=== PATIENT | female | born 1965 | race African-American/Black ===

== ENCOUNTER 2025-04-25 16:12 | Emergency (ER) | payer BC, MEDICAID ==
[~2025-04-25] VITALS: Ht 165.1 cm; Wt 72.0 kg
[2025-04-25] MEDS: OLANZAPINE 10 MG/VIAL IM ONE (17:09)
[2025-04-25] MEDS: DIPHENHYDRAMINE 50MG/ML VIAL IM ONE (17:09)
[2025-04-25] MEDS: MIDAZOLAM HCL 2 MG/2 ML VIAL IM ONE (18:05)
[2025-04-25] MEDS: ZIPRASIDONE MESYLATE 20MG/VIAL IM ONE (18:06)
[2025-04-25 18:56] LABS: BASOPHILS % 0.3 % (0.0-2.0); EOSINOPHILS % 1.5 % (0.0-5.0); HEMATOCRIT. 37.2 % (36.0-48.0); HEMOGLOBIN. 11.5 g/dL (12.0-16.0); LYMPHOCYTES % 21.7 % (20.0-50.0); MEAN CORPUSCULAR HEMOGLOBIN 27.2 pg (28.0-32.0); MEAN CORPUSCULAR VOLUME 87.8 fL (81.0-99.0); MEAN PLATELET VOLUME 9.5 fl (7.4-10.4); MONOCYTES % 5.3 % (2.0-8.0); NEUTROPHILS % 71.2 % (40.0-76.0); PLATELET 200 x1000/uL (130-400); RED BLOOD CELL COUNT 4.23 mill/uL (4.2-5.4); RED CELL DISTRIBUTION WIDTH 14.9 % (11.6-14.6)
[2025-04-25 19:08] LABS: CHLORIDE 112 mEq/L (98-107); POTASSIUM 4.3 mEq/L (3.5-5.1); SODIUM 143 mEq/L (136-145)
[2025-04-25 19:09] LABS: CALCIUM 9.9 mg/dL (8.7-10.4); CARBON DIOXIDE 25 mEq/L (21-32)
[2025-04-25 19:14] LABS: CREATININE 0.9 mg/dL (0.6-1.0); GLUCOSE 87 mg/dL (70-105); UREA NITROGEN BLOOD 15 mg/dL (9-23)
[2025-04-25 19:15] LABS: ETHANOL BLOOD < 10 mg/dL (<10)
[2025-04-25 19:16] LABS: ACETAMINOPHEN < 2 ug/mL (10-30); CREATINE KINASE 383 IU/L (34-145)
[2025-04-26] MEDS: MIDAZOLAM HCL 2 MG/2 ML VIAL IM ONE (01:15)
[2025-04-26] MEDS: HALOPERIDOL LACTATE 5MG/ML VIAL IM ONE (01:27)
[2025-04-26 01:39] VITALS: O2SAT 100
[2025-04-26] MEDS: MIDAZOLAM HCL 2 MG/2 ML VIAL IV ONE (01:39)
[2025-04-26 23:54] LABS: CLARITY URINE CLEAR (CLEAR); COLOR URINE YELLOW (YELLOW); GLUCOSE URINE NEGATIVE (NEGATIVE); KETONES URINE NEGATIVE (NEGATIVE); LEUKOCYTE ESTERASE URINE 3+ (NEGATIVE); NITRITE URINE NEGATIVE (NEGATIVE); OCCULT BLOOD URINE 2+ (NEGATIVE); PH URINE 6.5 (4.5-8.0); PROTEIN URINE NEGATIVE (NEGATIVE); SPECIFIC GRAVITY URINE 1.017 (1.005-1.030); UROBILINOGEN URINE 0.2 E.U./dL (0.2-1.0)
[2025-04-27 00:02] LABS: *AMPHETAMINES SCREEN URINE NEGATIVE (NEGATIVE); *BARBITURATES SCREEN URINE NEGATIVE (NEGATIVE); *BENZODIAZEPINES SCREEN URINE PRESUMPTIVE POSITIVE (NEGATIVE); *COCAINE SCREEN URINE PRESUMPTIVE POSITIVE (NEGATIVE); CANNABINOID URINE SCREEN NEGATIVE (NEGATIVE); ECSTASY MDMA SCREEN URINE NEGATIVE (NEGATIVE); METHADONE URINE SCREEN NEGATIVE (NEGATIVE); OPIATES URINE SCREEN NEGATIVE (NEGATIVE); PHENCYCLIDINE URINE SCREEN NEGATIVE (NEGATIVE)
[2025-04-27 00:11] LABS: SQUAMOUS EPITHELIAL CELL URINE 1+ /lpf (RARE/1+); WBC URINE 25-50 /hpf (0-2)
[2025-04-27 00:12] LABS: BACTERIA URINE TRACE; RBC URINE 25-50 /hpf (0-2)
[2025-04-27] MEDS: CEPHALEXIN 250MG CAPSULE PO SCH (09:54)
[2025-04-27] MEDS ORDERED: HYDROXYZINE 25MG TABLET PO PRN (11:15)
[2025-04-27 12:12] VITALS: BP 116/67; PULSE 61; RESP 18; TEMP 37; O2SAT 99
== END 2025-04-27 12:35 ==
LOC: ER 16:12
DX: F23 Brief psychotic disorder (principal); Z79.899 Other long term (current) drug therapy; Z20.822 Contact with and (suspected) exposure to COVID-19
CPT/HCPCS: 80305; 80048; 81003; 80307; 80329; 80320; 82550; 85025; 36415; 93005; 96372 ×2; 99291; 87426; 87086; 96374; J3490; J1200; J2250 ×2; J3486; J1630; G0480

== ENCOUNTER 2025-06-12 18:54 | Emergency (ER) | payer BC, MEDICAID ==
[~2025-06-12] VITALS: Ht 165.1 cm; Wt 72.0 kg
[2025-06-12] MEDS ORDERED: MIDAZOLAM HCL 5 MG/5 ML VIAL IM NR (19:15)
[2025-06-12] MEDS ORDERED: MIDAZOLAM HCL 5 MG/ML VIAL IM ONE (19:15)
[2025-06-12] MEDS: MIDAZOLAM HCL 2 MG/2 ML VIAL IM NR (19:30)
[2025-06-12] MEDS: HALOPERIDOL LACTATE 5MG/ML VIAL IM ONE (19:30)
[2025-06-12] MEDS: DIPHENHYDRAMINE 50MG/ML VIAL IM ONE (19:30)
[2025-06-12 20:23] LABS: BASOPHILS % 0.4 % (0.0-2.0); EOSINOPHILS % 1.1 % (0.0-5.0); HEMATOCRIT. 38.3 % (36.0-48.0); HEMOGLOBIN. 12.3 g/dL (12.0-16.0); LYMPHOCYTES % 14.9 % (20.0-50.0); MEAN PLATELET VOLUME 8.9 fl (7.4-10.4); MONOCYTES % 4.9 % (2.0-8.0); NEUTROPHILS % 78.7 % (40.0-76.0); PLATELET 293 x1000/uL (130-400); RED BLOOD CELL COUNT 4.57 mill/uL (4.2-5.4); RED CELL DISTRIBUTION WIDTH 14.1 % (11.6-14.6)
[2025-06-12 20:30] VITALS: O2SAT 98
[2025-06-12 20:33] LABS: CLARITY URINE CLOUDY (CLEAR); COLOR URINE DARK YELLOW (YELLOW); GLUCOSE URINE NEGATIVE (NEGATIVE); KETONES URINE 1+ (NEGATIVE); LEUKOCYTE ESTERASE URINE 2+ (NEGATIVE); NITRITE URINE NEGATIVE (NEGATIVE); OCCULT BLOOD URINE NEGATIVE (NEGATIVE); PH URINE 7.0 (4.5-8.0); PROTEIN URINE 1+ (NEGATIVE); SPECIFIC GRAVITY URINE 1.023 (1.005-1.030); UROBILINOGEN URINE 1.0 E.U./dL (0.2-1.0)
[2025-06-12 20:39] LABS: ETHANOL BLOOD < 10 mg/dL (<10); UREA NITROGEN BLOOD 12 mg/dL (9-23)
[2025-06-12 20:40] LABS: ASPARTATE AMINOTRANSFERASE 27 IU/L (<34); WBC URINE 15-25 /hpf (0-2)
[2025-06-12 20:41] LABS: BACTERIA URINE 2+; BILIRUBIN DIRECT 0.1 mg/dL (<=3.0); BILIRUBIN TOTAL 0.5 mg/dL (0.1-1.0); PROTEIN TOTAL 7.7 g/dL (6.0-8.3); RBC URINE 0-2 /hpf (0-2); SQUAMOUS EPITHELIAL CELL URINE 1+ /lpf (RARE/1+)
[2025-06-12 20:45] LABS: *AMPHETAMINES SCREEN URINE PRESUMPTIVE POSITIVE (NEGATIVE); *BARBITURATES SCREEN URINE NEGATIVE (NEGATIVE); *BENZODIAZEPINES SCREEN URINE NEGATIVE (NEGATIVE); *COCAINE SCREEN URINE PRESUMPTIVE POSITIVE (NEGATIVE); CANNABINOID URINE SCREEN PRESUMPTIVE POSITIVE (NEGATIVE); ECSTASY MDMA SCREEN URINE CONF.TEST INDICATED (NEGATIVE); METHADONE URINE SCREEN NEGATIVE (NEGATIVE); OPIATES URINE SCREEN NEGATIVE (NEGATIVE); PHENCYCLIDINE URINE SCREEN NEGATIVE (NEGATIVE)
[2025-06-12 20:48] LABS: CREATININE 1.4 mg/dL (0.6-1.0)
[2025-06-12] MEDS: CEPHALEXIN 250MG CAPSULE PO ONE (21:00)
[2025-06-12] MEDS: SODIUM CHLORIDE 0.9% 1,000 ML IV ONE (21:00)
[2025-06-13] MEDS: CEPHALEXIN 250MG CAPSULE PO SCH (09:00)
[2025-06-13 15:01] VITALS: BP 100/66; PULSE 62; RESP 16; TEMP 36.5; O2SAT 100
[2025-06-13] MEDS ORDERED: OLANZAPINE 5MG TABLET ODT PO SCH (21:00)
== END 2025-06-13 16:00 ==
LOC: ER 18:54
DX: R45.6 Violent behavior (principal); N39.0 Urinary tract infection, site not specified; F17.200 Nicotine dependence, unspecified, uncomplicated; F19.10 Other psychoactive substance abuse, uncomplicated; F20.9 Schizophrenia, unspecified; I49.8 Other specified cardiac arrhythmias; Z20.822 Contact with and (suspected) exposure to COVID-19; Z79.899 Other long term (current) drug therapy
CPT/HCPCS: 80076; 80305; 80048; 81003; 80307; 80329; 80320; 83735; 85025; 87086; 87186; 87077; 36415; 93005; 96372; 99291; 87426; J1200; J1630; J2250; J7030; 99285; G0480